=== PATIENT | female | born 1930 | race Caucasian/White ===

== ENCOUNTER 2017-01-24 09:33 | Emergency (ER) | payer MEDICARE, BC ==
[2017-01-24 09:45] VITALS: BP 188/81
[2017-01-24] MEDS ORDERED: Sodium Chloride 0.9% 1,000 ML IV STA (09:57)
[2017-01-24] MEDS ORDERED: Sodium Chloride 0.9% 10 ML Syringe FLUSH PRN (09:57)
--- NOTE | 2017-01-24 10:01 | EDM.PDOC ---
ED HPI GI/ABDOMINAL - General Chief Complaint: Gastrointestinal Problem Stated Complaint: STOMACH CRAMPING Time Seen by Provider: 01/24/17 09:51 Source: Reports: Patient, Family, RN notes reviewed History Limitations: Reports: No limitations - History of Present Illness INITIAL COMMENTS - FREE TEXT/NARRATIVE: 86-year-old female presents to emergency department today with complaint of diarrhea, she states she's had diarrhea for the last 3 days mostly watery no formed stool at times pink tinge she estimates she has between 15 and 20 loose stools per day denies any fever nausea or vomiting does complain of reduced inability to eat secondary to cramping - Related Data Allergies/ADRs: Allergies Allergy/AdvReac Type Severity Reaction Status Date / Time Latex, Natural Rubber Allergy Redness Verified 04/13/15 14:26 Home Meds: Home Meds Gemfibrozil [Lopid] 600 mg PO BID 04/13/15 [History] Isosorbide Mononitrate [Imdur] 30 mg PO DAILY 04/13/15 [History] Lisinopril [Prinivil] 40 mg PO DAILY 04/13/15 [History] Pioglitazone HCl [Pioglitazone HCl] 15 mg PO DAILY 04/13/15 [History] amLODIPine [Norvasc] 10 mg PO DAILY 04/13/15 [History] atorvaSTATin Calcium [Atorvastatin Calcium] 80 mg PO DAILY 04/13/15 [History] atorvaSTATin [Lipitor] 80 mg PO BEDTIME 04/13/15 [History] metFORMIN HCl [Metformin HCl] 850 mg PO TID 04/13/15 [History] Past Medical History HEENT History: Reports: Impaired vision, Macular degeneration Cardiovascular History: Reports: CAD, High cholesterol, Hypertension, [place], 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: Musculoskeletal History: Reports: Osteoarthritis Other Musculoskeletal History: Rknee bone on bone Endocrine/Metabolic History: Reports: Diabetes, type II - Past Surgical History Female Surgical History: Reports: Hysterectomy Social & Family History - Tobacco Use Smoking Status *Q: Never Smoker - Caffeine Use Caffeine Use: Reports: Coffee - Recreational Drug Use Recreational Drug Use: No ED ROS GENERAL - Review of Systems Review Of Systems: See Below Constitutional: Denies: fever HEENT: Reports: No symptoms Respiratory: Reports: no symptoms Cardiovascular: Reports: No symptoms GI/Abdominal: Reports: Abdominal pain, Diarrhea. Denies: Nausea, Vomiting : Reports: no symptoms Musculoskeletal: Reports: no symptoms ED EXAM, GI/ABD - Physical Exam Exam: See Below Exam Limited By: No limitations General Appearance: alert, WD/WN, no apparent distress Respiratory/Chest: no respiratory distress, lungs clear, normal breath sounds, no accessory muscle use Cardiovascular: regular rate, rhythm, no murmur GI/Abdominal: soft, non tender, no distention, no abnormal bruit Course - Vital Signs Last Recorded V/S: Last Vital Signs Temp 93.2 F L 01/24/17 09:43 Pulse 82 01/24/17 09:43 Resp 16 01/24/17 09:43 BP 188/81 H 01/24/17 09:43 Pulse Ox 97 01/24/17 09:43 - Orders/Labs/Meds Orders: Active Orders 24 hr Category Date Time Status Peripheral IV Care [RC] . DIRECTED Care 01/24/17 09:58 Active OVA AND PARASITES [MREF] Stat Lab 01/24/17 14:49 Received Sodium Chloride 0.9% [Saline Flush] Med 01/24/17 09:57 Active 10 ml FLUSH ASDIRECTED PRN Peripheral IV Insertion Adult [OM.PC] Urgent Oth 01/24/17 09:57 Ordered Medication Orders Sodium Chloride (Saline Flush) 10 ml FLUSH ASDIRECTED PRN PRN Reason: Keep Vein Open Last Admin: 01/24/17 10:12 Dose: 10 ml Labs: Laboratory Tests 01/24/17 01/24/17 01/24/17 Range/Units 10:09 10:09 12:17 WBC 9.8 (4.5-11.0) K/uL RBC 4.72 (3.30-5.50) M/uL Hgb 13.2 (12.0-15.0) g/dL Hct 40.0 (36.0-48.0) % MCV 85 (80-98) fL MCH 28 (27-31) pg MCHC 33 (32-36) % Plt Count 300 (150-400) K/uL Neut % (Auto) 80 H (36-66) % Lymph % (Auto) 8 L (24-44) % [place] % (Auto) 11 H (2-6) % Eos % (Auto) 1 L (2-4) % Baso % (Auto) 0 (0-1) % Sodium 139 L (140-148) mmol/L Potassium 3.7 (3.6-5.2) mmol/L Chloride 104 (100-108) mmol/L Carbon Dioxide 21 (21-32) mmol/L Anion Gap 17.7 H (5.0-14.0) mmol/L BUN 24 H (7-18) mg/dL Creatinine 1.3 H (0.6-1.0) mg/dL Est Cr Clr Drug Dosing 21.90 mL/min Estimated GFR (MDRD) 39 L (>60) Glucose 151 H (74-106) mg/dL Calcium 8.8 (8.5-10.1) mg/dL Urine Color Yellow Urine Appearance Clear Urine pH 5.0 (4.5-8.0) Ur Specific [place] 1.015 (1.008-1.030) Urine Protein Negative (NEGATIVE) mg/dL Urine Glucose (UA) Normal (NEGATIVE) mg/dL Urine Ketones Negative (NEGATIVE) mg/dL Urine Occult Blood Negative (NEGATIVE) Urine Nitrite Negative (NEGATIVE) Urine Bilirubin Negative (NEGATIVE) Urine Urobilinogen Normal (NORMAL) mg/dL Ur Leukocyte Esterase Negative (NEGATIVE) Urine RBC Not seen (0-5) Urine WBC Not seen (0-5) Ur Epithelial Cells Few Amorphous Sediment Few Urine Bacteria Few Urine Mucus Not seen Meds: Medications Generic Name Dose Route Start Last Admin Trade Name Freq PRN Reason Stop Dose Admin Sodium Chloride 10 ml 01/24/17 09:57 01/24/17 10:12 Saline Flush FLUSH 10 ml ASDIRECTED PRN Administration Keep Vein Open Discontinued Medications Generic Name Dose Route Start Last Admin Trade Name Freq PRN Reason Stop Dose Admin Sodium Chloride 1,000 mls @ 500 mls/hr 01/24/17 09:57 01/24/17 10:12 Normal Saline IV 01/24/17 11:56 500 mls/hr .BOLUS STA Administration Departure - Departure Time of Disposition: 15:23 Disposition: Home, Self-Care 01 Condition: good Clinical Impression: Diarrhea Qualifiers: Diarrhea type: infectious Qualified Code(s): A09 - Infectious gastroenteritis and colitis, unspecified Forms: ED Department Discharge Additional Instructions: use Imodium as needed to control diarrhea symptoms, Please followup with your primary care provider in 3-5 days if not better, please call return to the emergency department with worsening of symptoms. - My Orders Last 24 Hours: My Active Orders 01/24/17 09:57 Sodium Chloride 0.9% [Saline Flush] 10 ml FLUSH ASDIRECTED PRN Peripheral IV Insertion Adult [OM.PC] Urgent 01/24/17 09:58 Peripheral IV Care [RC] . DIRECTED 01/24/17 14:49 OVA AND PARASITES [MREF] Stat - Assessment/Plan Last 24 Hours: My Active Orders 01/24/17 09:57 Sodium Chloride 0.9% [Saline Flush] 10 ml FLUSH ASDIRECTED PRN Peripheral IV Insertion Adult [OM.PC] Urgent 01/24/17 09:58 Peripheral IV Care [RC] . DIRECTED 01/24/17 14:49 OVA AND PARASITES [MREF] Stat Plan: Assessment Acuity = acute Site and laterality = diarrhea Etiology = unclear etiology Manifestations = none Location of injury = home Lab values = CBC unremarkable sodium low at 139 consist of hyponatremia, creatinine elevated at 1.3 consistent with acute renal failure stage GIV stool culture pending Clostridium difficile is negative moderate amount of WBCs in stool Plan prescription written for Imodium AD, followup with primary care 3-5 days if no improvement will contact with culture results Patient was in agreement with the plan all questions were answered, they were instructed to return to the emergency department or call for worsening symptoms. This note was dictated using [employer] voice recognition software please call with any questions.
== END 2017-01-24 15:48 | disposition home or self-care (01) ==
LOC: JP.ED 09:33
DX: A09 Infectious gastroenteritis and colitis, unspecified (principal); H54.7 Unspecified visual loss; E11.9 Type 2 diabetes mellitus without complications; E78.00 Pure hypercholesterolemia, unspecified; I11.9 Hypertensive heart disease without heart failure; Z91.040 Latex allergy status; Z79.899 Other long term (current) drug therapy
CPT/HCPCS: 36415; 80048; 81001; 85025; 87046; 87177; 87209; 87493; 87899; 89055; 96360; 96361; 99284; J7040; J7050; 99283

== ENCOUNTER 2017-02-13 09:19 | Emergency (ER) | payer MEDICARE, BC ==
[2017-02-13] MEDS ORDERED: Furosemide 40 MG/4 ML VIAL IVPUSH ONE (13:29)
[2017-02-13 13:52] VITALS: BP 150/73
--- NOTE | 2017-02-13 14:49 | EDM.PDOC ---
[id number] ANXIETY/PANIC ATTACKS Time Seen by Provider: 02/13/17 10:00 Source: Reports: Patient, Family History Limitations: Reports: No limitations - History of Present Illness INITIAL COMMENTS - FREE TEXT/NARRATIVE: pt is quite stressed and has been feeling more sob and she has felt more tired than usual. She does feel anxious at nite with her breathing. She has been more tired. Timing/Duration: Reports: Day(s):, Other (pt is not sleeping at nite well. ) Associated symptoms: Reports: shortness of breath, malaise - Related Data Allergies/ADRs: Allergies Allergy/AdvReac Type Severity Reaction Status Date / Time Latex, Natural Rubber Allergy Redness Verified 02/13/17 10:12 Home Meds: Home Meds Gemfibrozil [Lopid] 600 mg PO BID 04/13/15 [History] Isosorbide Mononitrate [Imdur] 30 mg PO DAILY 04/13/15 [History] Lisinopril [Prinivil] 40 mg PO DAILY 04/13/15 [History] Pioglitazone HCl [Pioglitazone HCl] 15 mg PO DAILY 04/13/15 [History] amLODIPine [Norvasc] 10 mg PO DAILY 04/13/15 [History] atorvaSTATin Calcium [Atorvastatin Calcium] 80 mg PO DAILY 04/13/15 [History] atorvaSTATin [Lipitor] 80 mg PO BEDTIME 04/13/15 [History] metFORMIN HCl [Metformin HCl] 850 mg PO TID 04/13/15 [History] Aspirin [Aspirin EC] 325 mg PO DAILY 02/13/17 [History] Levothyroxine Sodium [Levo-T] 25 mcg PO DAILY 02/13/17 [History] Metoprolol Tartrate [Lopressor] 25 mg PO Q12HR 02/13/17 [History] Oxybutynin Chloride 2.5 mg PO BID 02/13/17 [History] Oxybutynin Chloride [Ditropan Xl] 2.5 mg PO BEDTIME 02/13/17 [History] Pioglitazone [Actos] 15 mg PO DAILY 02/13/17 [History] Ranitidine [Zantac] 150 mg PO BID 02/13/17 [History] Past Medical History HEENT History: Reports: Impaired vision, Macular degeneration Cardiovascular History: Reports: CAD, High cholesterol, Hypertension, [place], 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: Musculoskeletal History: Reports: Osteoarthritis Other Musculoskeletal History: Rknee bone on bone Endocrine/Metabolic History: Reports: Diabetes, type II - Past Surgical History Female Surgical History: Reports: Hysterectomy Social & Family History - Tobacco Use Smoking Status *Q: Never Smoker Second Hand Smoke Exposure: No - Caffeine Use Caffeine Use: Reports: Coffee - Recreational Drug Use Recreational Drug Use: No ED ROS GENERAL - Review of Systems Review Of Systems: See Below Constitutional: Reports: no symptoms HEENT: Reports: No symptoms Respiratory: Reports: Shortness of Breath, Cough Cardiovascular: Reports: No symptoms Endocrine: Reports: no symptoms GI/Abdominal: Reports: No symptoms : Reports: no symptoms ED EXAM, NEURO - Physical Exam Exam: See Below Text/Narrative:: pt arrived feeling anxious and more tired than usual. Exam Limited By: No limitations General Appearance: alert, mild distress Ears: normal TMs Nose: normal inspection Throat/Mouth: Normal inspection Head Exam: atraumatic Neck: normal inspection Respiratory/Chest: decreased breath sounds, crackles Cardiovascular: regular rate, rhythm GI/Abdominal: soft, non tender (Female) Exam: Deferred Rectal (Female) Exam: Deferred Neurological: alert, oriented x 3 Back Exam: normal inspection Extremities: normal inspection Course - Vital Signs Last Recorded V/S: Last Vital Signs Temp 35.7 C 02/13/17 09:48 Pulse 61 02/13/17 13:40 Resp 20 02/13/17 13:40 BP 150/73 H 02/13/17 13:40 Pulse Ox 98 02/13/17 13:40 - Orders/Labs/Meds Labs: Laboratory Tests 02/13/17 02/13/17 02/13/17 Range/Units 10:54 10:54 11:57 WBC 8.6 (4.5-11.0) K/uL RBC 4.12 (3.30-5.50) M/uL Hgb 11.3 L (12.0-15.0) g/dL Hct 35.3 L (36.0-48.0) % MCV 86 (80-98) fL MCH 27 (27-31) pg MCHC 32 (32-36) % Plt Count 290 (150-400) K/uL Neut % (Auto) 70 H (36-66) % Lymph % (Auto) 15 L (24-44) % [place] % (Auto) 12 H (2-6) % Eos % (Auto) 3 (2-4) % Baso % (Auto) 0 (0-1) % Sodium 144 (140-148) mmol/L Potassium 4.6 (3.6-5.2) mmol/L Chloride 107 (100-108) mmol/L Carbon Dioxide 25 (21-32) mmol/L Anion Gap 11.7 (5.0-14.0) mmol/L BUN 32 H (7-18) mg/dL Creatinine 1.2 H (0.6-1.0) mg/dL Est Cr Clr Drug Dosing 23.72 mL/min Estimated GFR (MDRD) 42 L (>60) Glucose 103 (74-106) mg/dL Calcium 8.9 (8.5-10.1) mg/dL Iron (50-170) ug/dL TIBC (250-450) ug/dl % Saturation (20-55) % [id number] Pept (5-450) pg/mL Urine Color Yellow Urine Appearance Cloudy Urine pH 5.0 (4.5-8.0) Ur Specific [place] 1.020 (1.008-1.030) Urine Protein 30 H (NEGATIVE) mg/dL Urine Glucose (UA) Normal (NEGATIVE) mg/dL Urine Ketones Negative (NEGATIVE) mg/dL Urine Occult Blood Negative (NEGATIVE) Urine Nitrite Negative (NEGATIVE) Urine Bilirubin Negative (NEGATIVE) Urine Urobilinogen Normal (NORMAL) mg/dL Ur Leukocyte Esterase Small (NEGATIVE) Urine RBC 0-5 (0-5) Urine WBC 0-5 (0-5) Ur Epithelial Cells Rare Amorphous Sediment Not seen Urine Bacteria Many Urine Mucus Not seen 02/13/17 02/13/17 Range/Units 12:43 14:54 WBC (4.5-11.0) K/uL RBC (3.30-5.50) M/uL Hgb (12.0-15.0) g/dL Hct (36.0-48.0) % MCV (80-98) fL MCH (27-31) pg MCHC (32-36) % Plt Count (150-400) K/uL Neut % (Auto) (36-66) % Lymph % (Auto) (24-44) % [place] % (Auto) (2-6) % Eos % (Auto) (2-4) % Baso % (Auto) (0-1) % Sodium (140-148) mmol/L Potassium (3.6-5.2) mmol/L Chloride (100-108) mmol/L Carbon Dioxide (21-32) mmol/L Anion Gap (5.0-14.0) mmol/L BUN (7-18) mg/dL Creatinine (0.6-1.0) mg/dL Est Cr Clr Drug Dosing mL/min Estimated GFR (MDRD) (>60) Glucose (74-106) mg/dL Calcium (8.5-10.1) mg/dL Iron 48 L (50-170) ug/dL TIBC 361 (250-450) ug/dl % Saturation 13 L (20-55) % Jlg-D-Nlasmkrenmp Pept [id number] H (5-450) pg/mL Urine Color Urine Appearance Urine pH (4.5-8.0) Ur Specific [place] (1.008-1.030) Urine Protein (NEGATIVE) mg/dL Urine Glucose (UA) (NEGATIVE) mg/dL Urine Ketones (NEGATIVE) mg/dL Urine Occult Blood (NEGATIVE) Urine Nitrite (NEGATIVE) Urine Bilirubin (NEGATIVE) Urine Urobilinogen (NORMAL) mg/dL Ur Leukocyte Esterase (NEGATIVE) Urine RBC (0-5) Urine WBC (0-5) Ur Epithelial Cells Amorphous Sediment Urine Bacteria Urine Mucus Meds: Medications Discontinued Medications Generic Name Dose Route Start Last Admin Trade Name Freq PRN Reason Stop Dose Admin Furosemide 60 mg 02/13/17 13:29 02/13/17 13:39 Lasix IVPUSH 02/13/17 13:30 60 mg ONETIME ONE Administration - Re-Assessments/Exams Free Text/Narrative Re-Assessment/Exam: 02/13/17 15:05 chest xray reveled some evidence of chf. Her bnp was 15,000, Her hg was on the low side at 11. 4 She was given lasix 60 mg and she has gone about 1000 cc. 02/13/17 15:15 02/13/17 15:15 Pt was checked for her fe level and is low. Sh is only 13 % saturated. Departure - Departure Time of Disposition: 15:16 Disposition: Home, Self-Care 01 Condition: fair Clinical Impression: Fluid overload, Fe deficiency anemia, Anxiety Instructions: Edema Referrals: Breanne Barraza PA [Primary Care Provider] - Forms: ED Department Discharge Care Plan Goals: low salt diet, weigh daily, appt with Laury Barraza on tue or tue. Lasix 20mg daily, kcl 10mq daily, multivit high in fe. , ativan .5 at hs for the next week. Pt may need an echo and further workup.
--- NOTE | 2017-02-14 09:21 | CR ---
Chest 2V HISTORY: sob COMPARISON: 11/13/2012 FINDINGS: Lungs appear clear and normally aerated. Heart size appears borderline enlarged and increased compar ed with the prior exam. No vascular redistribution or pleural fluid can be seen. There is no interst itial edema. Mild degenerative changes are noted along the thoracic spine. IMPRESSION: Borderline cardiomegaly without evidence for decompensation. No other acute chest abnormality is cassie ntified.
== END 2017-02-13 15:47 | disposition home or self-care (01) ==
LOC: JP.ED 09:19
DX: E87.70 Fluid overload, unspecified (principal); D50.9 Iron deficiency anemia, unspecified; F41.9 Anxiety disorder, unspecified; I25.2 Old myocardial infarction; I25.10 Atherosclerotic heart disease of native coronary artery without angina pectoris; I10 Essential (primary) hypertension; E78.00 Pure hypercholesterolemia, unspecified; E11.9 Type 2 diabetes mellitus without complications; Z90.710 Acquired absence of both cervix and uterus; Z79.82 Long term (current) use of aspirin; Z79.899 Other long term (current) drug therapy; Z91.040 Latex allergy status
CPT/HCPCS: 36415; 71020; 80048; 81001; 83550; 83880; 85025; 96374; 99285; J1940; 99284

== ENCOUNTER 2018-11-21 08:24 | Emergency (ER) | payer MEDICARE, BC ==
--- NOTE | 2018-11-21 09:23 | EDM.PDOC ---
ED HPI GENERAL MEDICAL PROBLEM - General Chief Complaint: Respiratory Problem Stated Complaint: SOB Time Seen by Provider: 11/21/18 09:01 Source of Information: Reports: Patient, RN Notes Reviewed History Limitations: Reports: No Limitations - History of Present Illness INITIAL COMMENTS - FREE TEXT/NARRATIVE: 88-year-old female presents emergency department day complaint of shortness of breath, she states she's been short of breath for the last 3 weeks it is progressively gotten worse she was evaluated in the clinic on 01 November did a trial of doxycycline as well as albuterol states she feels it was a bit better on the antibiotics however it is now gotten worse since she stopped she did not use the albuterol that was prescribed. She denies any sputum production weight gain fevers she is nauseated no difficulty with bowel movements or urination - Related Data Allergies Allergy/AdvReac Type Severity Reaction Status Date / Time Latex, Natural Rubber Allergy Redness Verified 11/21/18 08:47 Home Meds: Home Meds Isosorbide Mononitrate [Imdur] 30 mg PO DAILY 04/13/15 [History] Lisinopril [Prinivil] 40 mg PO DAILY 04/13/15 [History] Levothyroxine Sodium [Levo-T] 25 mcg PO DAILY 02/13/17 [History] Metoprolol Tartrate [Lopressor] 50 mg PO Q12HR 02/13/17 [History] Oxybutynin Chloride 5 mg PO BID 02/13/17 [History] Pioglitazone [Actos] 15 mg PO DAILY 02/13/17 [History] Ranitidine [Zantac] 150 mg PO BID 02/13/17 [History] Furosemide 20 mg PO DAILY 02/20/18 [History] Iron,Carbonyl/Vit C/Vit B12/Fa [Iron 100 Plus Tablet] 324 mg PO DAILY 02/20/18 [ History] Acetaminophen [Non-Aspirin Pain Relief] 650 mg PO Q6HR PRN 06/09/18 [History] Vit C/[place] Ac/Lut/Copper/ZnOx [Preservision Softgel] 1 each PO DAILY 06/09/18 [ History] Furosemide [Lasix] 40 mg PO DAILY #30 tablet 11/21/18 [Rx] Past Medical History HEENT History: Reports: Impaired Vision, Macular Degeneration Cardiovascular History: Reports: Afib, CAD, High Cholesterol, Hypertension, [place], SOB on Exertion Gastrointestinal History: Reports: GERD 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 Denies: Wheezing, Cough, Sputum Cardiovascular: Reports: Dyspnea on Exertion GI/Abdominal: Reports: Nausea : Reports: No Symptoms Musculoskeletal: Reports: No Symptoms Skin: Reports: No Symptoms Neurological: Reports: No Symptoms ED EXAM, GENERAL - Physical Exam Exam: See Below Free Text/Narrative:: General: Female, not in any distress, alert and oriented x3 HEENT: head is atraumatic normocephalic, eyes pupils equal round reactive to light, sclera clear no conjunctivitis appreciated. Ears tympanic membranes clear and dan landmarks and light reflex are present bilaterally canals are clear. Nose no septal deviation, nares are clear, no blood present. Mouth mucosa is moist and pink no erythema or exudate noted in soft palate, tongue is midline uvula is midline, dentition is intact. Neck: Supple no thyromegaly no tracheal deviation. Nodes: Cervical nodes subclavicular nodes nontender no palpable lymphadenopathy noted. Lungs: crackles in the base bilateraly. CV: Irregularly irregular rate and rhythm S1 and S2 appreciated no murmurs rubs or gallops noted. Abdomen: Soft, nontender, no palpable masses or organomegaly appreciated, no distention no guarding bowel sounds are present, . Neuro: GCS of 15 Skin: Warm and dry, intact Extremities: No lower extremity edema appreciated, Course - Vital Signs Last Recorded V/S: Last Vital Signs Temp 93.4 F L 11/21/18 08:45 Pulse 91 11/21/18 08:45 Resp 24 H 11/21/18 08:45 BP 150/84 H 11/21/18 10:22 Pulse Ox 98 11/21/18 08:45 - Orders/Labs/Meds Orders: Active Orders 24 hr Category Date Time Status Cardiac Monitoring [RC] .As Directed Care 11/21/18 09:17 Active EKG Documentation Completion [RC] ASDIRECTED Care 11/21/18 09:17 Active Peripheral IV Care [RC] . DIRECTED Care 11/21/18 09:59 Active Sodium Chloride 0.9% [Saline Flush] Med 11/21/18 09:58 Active 10 ml FLUSH ASDIRECTED PRN Peripheral IV Insertion Adult [OM.PC] Urgent Oth 11/21/18 09:58 Ordered EKG 12 Lead [EK] Stat Ther 11/21/18 09:17 Ordered Medication Orders Sodium Chloride (Saline Flush) 10 ml FLUSH ASDIRECTED PRN PRN Reason: Keep Vein Open Last Admin: 11/21/18 10:24 Dose: 10 ml Labs: Laboratory Tests 11/21/18 11/21/18 11/21/18 Range/Units 09:24 09:24 09:24 WBC 6.4 (4.5-11.0) K/uL RBC 4.22 (3.30-5.50) M/uL Hgb 12.3 (12.0-15.0) g/dL Hct 37.7 (36.0-48.0) % MCV 89 (80-98) fL MCH 29 (27-31) pg MCHC 33 (32-36) % Plt Count 218 (150-400) K/uL Neut % (Auto) 74 H (36-66) % Lymph % (Auto) 13 L (24-44) % [place] % (Auto) 11 H (2-6) % Eos % (Auto) 2 (2-4) % Baso % (Auto) 0 (0-1) % Sodium 139 L (140-148) mmol/L Potassium 3.4 L (3.6-5.2) mmol/L Chloride 102 (100-108) mmol/L Carbon Dioxide 27 (21-32) mmol/L Anion Gap 13.4 (5.0-14.0) mmol/L BUN 26 H (7-18) mg/dL Creatinine 1.3 H (0.6-1.0) mg/dL Est Cr Clr Drug Dosing 24.27 mL/min Estimated GFR (MDRD) 39 L (>60) Glucose 137 H (74-106) mg/dL Lactic Acid 1.5 (0.4-2.0) mmol/L Calcium 8.8 (8.5-10.1) mg/dL Total Bilirubin 0.8 D (0.2-1.0) mg/dL AST 33 (15-37) U/L ALT 42 D (12-78) U/L Alkaline Phosphatase 90 (46-116) U/L Troponin I 0.128 H* (0.000-0.056) ng/mL NT-Pro-B Natriuret Pep 56978 H (5-450) pg/mL Total Protein 6.8 (6.4-8.2) g/dL Albumin 3.2 L (3.4-5.0) g/dL Globulin 3.6 H (2.3-3.5) g/dL Albumin/Globulin Ratio 0.9 L (1.2-2.2) Meds: Medications Generic Name Dose Route Start Last Admin Trade Name Freq PRN Reason Stop Dose Admin Sodium Chloride 10 ml 11/21/18 09:58 11/21/18 10:24 Saline Flush FLUSH 10 ml ASDIRECTED PRN Administration Keep Vein Open Discontinued Medications Generic Name Dose Route Start Last Admin Trade Name Freq PRN Reason Stop Dose Admin Furosemide 40 mg 11/21/18 09:58 11/21/18 10:24 Lasix IVPUSH 11/21/18 09:59 40 mg ONETIME ONE Administration Nitroglycerin 0.4 mg 11/21/18 09:58 11/21/18 10:22 Nitrostat SL 11/21/18 09:59 0.4 mg ONETIME ONE Administration Departure - Departure Time of Disposition: 11:07 Disposition: Home, Self-Care 01 Condition: Fair Clinical Impression: Acute exacerbation of congestive heart failure Qualifiers: Heart failure type: unspecified Qualified Code(s): I50.9 - Heart failure, unspecified - Discharge Information Referrals: Breanne Barraza PA [Primary Care Provider] - Forms: ED Department Discharge Additional Instructions: Take Lasix 40 mg twice a day you have received 1 dose today take a second dose this afternoon. take the Lasix 40 mg twice a day for the next 3 days, then reduce your dose to 40 mg once a day, follow-up with your primary care provider by the end of this week for reevaluation and recheck of lab work, additional Lasix medication has been faxed to [email or web address] - My Orders Last 24 Hours: My Active Orders 11/21/18 09:17 Cardiac Monitoring [RC] .As Directed EKG Documentation Completion [RC] ASDIRECTED EKG 12 Lead [EK] Stat 11/21/18 09:58 Sodium Chloride 0.9% [Saline Flush] 10 ml FLUSH ASDIRECTED PRN Peripheral IV Insertion Adult [OM.PC] Urgent 11/21/18 09:59 Peripheral IV Care [RC] . DIRECTED - Assessment/Plan Last 24 Hours: My Active Orders 11/21/18 09:17 Cardiac Monitoring [RC] .As Directed EKG Documentation Completion [RC] ASDIRECTED EKG 12 Lead [EK] Stat 11/21/18 09:58 Sodium Chloride 0.9% [Saline Flush] 10 ml FLUSH ASDIRECTED PRN Peripheral IV Insertion Adult [OM.PC] Urgent 11/21/18 09:59 Peripheral IV Care [RC] . DIRECTED Plan: Assessment Acuity = acute Site and laterality = exacerbation of congestive heart failure Etiology = unclear etiology Manifestations = dyspnea and dyspnea on exertion Location of injury = Home Lab values = CBC unremarkable, potassium low at 3.4 consistent hypokalemia creatinine elevated 1.3 consistent chronic renal failure stage G IIIB troponin elevated 0.128 consistent with a demand ischemia BNP markedly elevated 16,664 consistent with fluid overload type pattern chest x-ray shows cardiomegaly and congestive heart failure type pattern EKG demonstrates a sinus rhythm there is no ST elevations or depressions Plan She was provided nitroglycerin 1 with 40 mg Lasix IV which did provide some relief I talked to her about admission secondary to her age and extensiveness of the congestive heart failure she declined would like to try outpatient treatment first. Therefore will increase her Lasix to 40 mg twice a day for the next 3 days and then 40 mg once a day with good follow-up with her primary in the next 2-3 days for reevaluation and recheck electrolytes This note was dictated using [email or web address] voice recognition software please call with any questions on syntax or grammar.
[2018-11-21] MEDS ORDERED: Sodium Chloride 0.9% 10 ML Syringe FLUSH PRN (09:58)
[2018-11-21] MEDS ORDERED: Furosemide 40 MG/4 ML VIAL IVPUSH ONE (09:58)
[2018-11-21] MEDS ORDERED: Nitroglycerin 0.4 MG Tab.SL SL ONE (09:58)
--- NOTE | 2018-11-21 10:09 | CR ---
Mild-moderate cardiomegaly. No pleural effusion. No definitive focal consolidation. Interstitial thickening is likely chronic but correlate for interstitial edema. Blunting of the costophrenic angles could indicate pleural thickening versus tiny pleural effusions. Kyphosis of the spine.
[2018-11-21 10:23] VITALS: BP 150/84
== END 2018-11-21 12:01 | disposition home or self-care (01) ==
LOC: JP.ED 08:24
DX: I11.0 Hypertensive heart disease with heart failure (principal); I50.9 Heart failure, unspecified; E11.9 Type 2 diabetes mellitus without complications; E78.00 Pure hypercholesterolemia, unspecified; I25.2 Old myocardial infarction; Z91.040 Latex allergy status; Z79.899 Other long term (current) drug therapy
CPT/HCPCS: 36415; 71046; 80053; 83605; 83880; 84484; 85025; 93005; 96374; 99285; J1940; 99284; A9270-GY

== ENCOUNTER 2019-05-13 22:16 | Emergency (ER) | payer MEDICARE, BC ==
[2019-05-13 22:44] VITALS: BP 151/96
[2019-05-13] MEDS ORDERED: Alum Hydrox/Mag Hydrox/Simeth 15 ML, Lidocaine 2% 15 ML PO ONE ×2 (22:53)
--- NOTE | 2019-05-13 22:54 | EDM.PDOC ---
ED HPI GENERAL MEDICAL PROBLEM - General Chief Complaint: Abdominal Pain Stated Complaint: COUGH,SOB,ABDOMINAL PAIN Time Seen by Provider: 05/13/19 22:46 Source of Information: Reports: Patient, Family, Old Records, RN Notes Reviewed History Limitations: Reports: No Limitations - History of Present Illness INITIAL COMMENTS - FREE TEXT/NARRATIVE: 88-year-old female presents to the emergency department today complaint of abdominal pain. She had an extensive evaluation by her primary care for the abdominal pain 2 days ago which included blood work and CT scan of the abdomen, results of blood work are all unremarkable CT scan of the abdomen does show moderate sized hiatal hernia scant gallstones and diverticulosis no active disease. Her complaining emergency department is that she is still having abdominal pain primary care did switch her from ranitidine to omeprazole she has not felt any relief Abdominal Pain Score (Numeric/FACES): 3 - Related Data Allergies Allergy/AdvReac Type Severity Reaction Status Date / Time Latex, Natural Rubber Allergy Redness Verified 03/16/19 09:21 Home Meds: Home Meds Isosorbide Mononitrate [Imdur] 30 mg PO DAILY 04/13/15 [History] Lisinopril [Prinivil] 40 mg PO DAILY 04/13/15 [History] Levothyroxine Sodium [Levo-T] 25 mcg PO DAILY 02/13/17 [History] Metoprolol Tartrate [Lopressor] 50 mg PO Q12HR 02/13/17 [History] Furosemide 20 mg PO DAILY 02/20/18 [History] Iron,Carbonyl/Vit C/Vit B12/Fa [Iron 100 Plus Tablet] 324 mg PO DAILY 02/20/18 [ History] Acetaminophen [Non-Aspirin Pain Relief] 650 mg PO Q6HR PRN 06/09/18 [History] Vit C/Elliott Ac/Lut/Copper/ZnOx [Preservision Softgel] 1 each PO DAILY 06/09/18 [ History] Warfarin [Coumadin] 2.5 mg PO DAILY 03/16/19 [History] LORazepam 0.5 mg PO BEDTIME 05/13/19 [History] Omeprazole 20 mg PO DAILY 05/13/19 [History] Past Medical History HEENT History: Reports: Impaired Vision, Macular Degeneration Cardiovascular History: Reports: Afib, CAD, High Cholesterol, Hypertension, [place], SOB on Exertion Gastrointestinal History: Reports: Cholelithiasis, Diverticulosis, GERD, Hiatal Hernia 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: Musculoskeletal History: Reports: Osteoarthritis Other Musculoskeletal History: right knee pain Endocrine/Metabolic History: Reports: Diabetes, Type II - Past Surgical History Female Surgical History: Reports: Hysterectomy Social & Family History - Tobacco Use Smoking Status *Q: Never Smoker - Caffeine Use Caffeine Use: Reports: None - Recreational Drug Use Recreational Drug Use: No ED ROS GENERAL - Review of Systems Review Of Systems: See Below Constitutional: Reports: No Symptoms HEENT: Reports: No Symptoms Respiratory: Reports: Cough Cardiovascular: Reports: No Symptoms GI/Abdominal: Reports: Abdominal Pain : Reports: No Symptoms ED EXAM, GI/ABD - Physical Exam Exam: See Below Exam Limited By: No Limitations General Appearance: Alert, WD/WN, No Apparent Distress Respiratory/Chest: No Respiratory Distress, Lungs Clear, Normal Breath Sounds, No Accessory Muscle Use Cardiovascular: No Murmur, Irregularly Irregular GI/Abdominal Exam: Normal Bowel Sounds, Soft, Non-Tender Course - Vital Signs Last Recorded V/S: Last Vital Signs Temp 97.9 F 05/13/19 22:41 Pulse 79 05/13/19 22:41 Resp 16 05/13/19 22:41 BP 151/96 H 05/13/19 22:41 Pulse Ox 96 05/13/19 22:41 - Orders/Labs/Meds Orders: Active Orders 24 hr Category Date Time Status UA W/MICROSCOPIC [URIN] Urgent Lab 05/13/19 22:51 Ordered Labs: Laboratory Tests 05/13/19 05/13/19 05/13/19 Range/Units 23:02 23:02 23:02 WBC 9.1 (4.5-11.0) K/uL RBC 4.92 (3.30-5.50) M/uL Hgb 14.5 D (12.0-15.0) g/dL Hct 44.1 (36.0-48.0) % MCV 90 (80-98) fL MCH 30 (27-31) pg MCHC 33 (32-36) % Plt Count 214 (150-400) K/uL Neut % (Auto) 82 H (36-66) % Lymph % (Auto) 10 L (24-44) % [place] % (Auto) 7 H (2-6) % Eos % (Auto) 1 L (2-4) % Baso % (Auto) 0 (0-1) % Sodium 137 L (140-148) mmol/L Potassium 4.0 (3.6-5.2) mmol/L Chloride 100 (100-108) mmol/L Carbon Dioxide 24 (21-32) mmol/L Anion Gap 17.0 H (5.0-14.0) mmol/L BUN 39 H (7-18) mg/dL Creatinine 1.4 H (0.6-1.0) mg/dL Est Cr Clr Drug Dosing 19.57 mL/min Estimated GFR (MDRD) 35 L (>60) Glucose 192 H (74-106) mg/dL Lactic Acid 2.4 H (0.4-2.0) mmol/L Calcium 8.7 (8.5-10.1) mg/dL Total Bilirubin 0.7 (0.2-1.0) mg/dL AST 34 (15-37) U/L ALT 72 (12-78) U/L Alkaline Phosphatase 140 H (46-116) U/L Troponin I 0.024 (0.000-0.056) ng/mL NT-Pro-B Natriuret Pep (5-450) pg/mL Total Protein 7.2 (6.4-8.2) g/dL Albumin 3.2 L (3.4-5.0) g/dL Globulin 4.0 H (2.3-3.5) g/dL Albumin/Globulin Ratio 0.8 L (1.2-2.2) Lipase 222 (73-393) U/L 05/13/19 Range/Units 23:53 WBC (4.5-11.0) K/uL RBC (3.30-5.50) M/uL Hgb (12.0-15.0) g/dL Hct (36.0-48.0) % MCV (80-98) fL MCH (27-31) pg MCHC (32-36) % Plt Count (150-400) K/uL Neut % (Auto) (36-66) % Lymph % (Auto) (24-44) % [place] % (Auto) (2-6) % Eos % (Auto) (2-4) % Baso % (Auto) (0-1) % Sodium (140-148) mmol/L Potassium (3.6-5.2) mmol/L Chloride (100-108) mmol/L Carbon Dioxide (21-32) mmol/L Anion Gap (5.0-14.0) mmol/L BUN (7-18) mg/dL Creatinine (0.6-1.0) mg/dL Est Cr Clr Drug Dosing mL/min Estimated GFR (MDRD) (>60) Glucose (74-106) mg/dL Lactic Acid (0.4-2.0) mmol/L Calcium (8.5-10.1) mg/dL Total Bilirubin (0.2-1.0) mg/dL AST (15-37) U/L ALT (12-78) U/L Alkaline Phosphatase (46-116) U/L Troponin I (0.000-0.056) ng/mL NT-Pro-B Natriuret Pep 69954 H (5-450) pg/mL Total Protein (6.4-8.2) g/dL Albumin (3.4-5.0) g/dL Globulin (2.3-3.5) g/dL Albumin/Globulin Ratio (1.2-2.2) Lipase (73-393) U/L Meds: Medications Discontinued Medications Generic Name Dose Route Start Last Admin Trade Name Freq PRN Reason Stop Dose Admin Al Hydroxide/Mg Hydroxide 15 0 ml 05/13/19 22:53 05/13/19 23:20 ml/ Lidocaine HCl 15 ml PO 05/13/19 22:54 15 ml ONETIME ONE Administration Departure - Departure Time of Disposition: 00:52 Disposition: Home, Self-Care 01 Condition: Fair Clinical Impression: Acute exacerbation of congestive heart failure Qualifiers: Heart failure type: unspecified Qualified Code(s): I50.9 - Heart failure, unspecified - Discharge Information Referrals: Breanne Barraza PA [Primary Care Provider] - Forms: ED Department Discharge Additional Instructions: Increase her Lasix to 40 mg 2 times a day and then follow-up with your primary care in the next 3-5 days for reevaluation - My Orders Last 24 Hours: My Active Orders 05/13/19 22:51 UA W/MICROSCOPIC [URIN] Urgent - Assessment/Plan Last 24 Hours: My Active Orders 05/13/19 22:51 UA W/MICROSCOPIC [URIN] Urgent Plan: Assessment Acuity = acute Site and laterality = exacerbation congestive heart failure Etiology = fluid overload Manifestations = cough, pushing on the handle hernias well causing epigastric pain Location of injury = Home Lab values = CBC unremarkable creatinine elevated 1.4 consistent chronic renal failure stage G IIIB BNP markedly elevated at 32,506 Plan She recently had her Lasix cut back to only 20 mg once a day and then increases to 40 mg twice a day follow-up with her primary care in the next 3-5 days for reevaluation This note was dictated using [employer] voice recognition software please call with any questions on syntax or grammar.
--- NOTE | 2019-05-13 23:36 | CRLCR ---
INDICATION: Cough TECHNIQUE: Chest radiograph 2 views COMPARISON: CT 05/11/2019 FINDINGS: Mediastinum: The mediastinum is normal in appearance. Severe cardiomegaly is present. Lung: Both lungs are unremarkable in appearance. No sign of pleural effusion seen. No pneumothorax is identified. visualized. There is a chronic appearing mild compression deformity present in the lower thoracic spine, unchanged from prior exam. IMPRESSION: 1. Severe cardiomegaly is present. Dictated by Bert Cerrato MD @ 05/13/2019 11:35:28 PM Dictated by: Bert Cerrato MD @ 05/13/2019 23:35:30 (Electronically Signed)
== END 2019-05-14 01:05 | disposition home or self-care (01) ==
LOC: JP.ED 22:16
DX: I11.0 Hypertensive heart disease with heart failure (principal); I50.9 Heart failure, unspecified; E11.9 Type 2 diabetes mellitus without complications; I25.2 Old myocardial infarction; I25.10 Atherosclerotic heart disease of native coronary artery without angina pectoris; I48.91 Unspecified atrial fibrillation; K21.9 Gastro-esophageal reflux disease without esophagitis; M19.90 Unspecified osteoarthritis, unspecified site; Z91.040 Latex allergy status; Z79.899 Other long term (current) drug therapy; Z79.01 Long term (current) use of anticoagulants; Z90.710 Acquired absence of both cervix and uterus
CPT/HCPCS: 36415; 71046; 80053; 83605; 83690; 83880; 84484; 85025; 99284; A9270

== ENCOUNTER 2019-06-04 09:22 | Day surgery (SDC) | payer MEDICARE, BC ==
[~2019-06-04 09:22] MED LIST: Bupivacaine 0.5% 50 ML MDV ONE; Lidocaine 1% with EPINEPHrine 1:100,000 50 ML MDV ONE
[2019-06-04] MEDS ORDERED: Dextrose 5%-Lactated Ringers 1,000 ML IV SCH (09:45)
[2019-06-04] MEDS ORDERED: ceFAZolin 2 GM in Sodium Chloride 0.9% 50 ML IV ONE (10:30)
[2019-06-04] MEDS ORDERED: fentaNYL 100 MCG/2 ML SDV ONE (11:46)
[2019-06-04] MEDS ORDERED: Propofol 200 MG/20 ML SDV ONE (11:46)
[2019-06-04] MEDS ORDERED: Acetaminophen/HYDROcodone 325-5 MG Tab PO PRN (13:56)
[2019-06-04 14:02] VITALS: BP 160/83; PULSE 74
--- NOTE | 2019-06-05 08:06 | OR ---
DATE OF PROCEDURE: 06/04/2019 PREOPERATIVE DIAGNOSIS: Incarcerated right inguinal hernia. POSTOPERATIVE DIAGNOSIS: Incarcerated direct right inguinal hernia. PROCEDURE: Reduction and repair with an extra-large PerFix mesh plug and patch, incarcerated direct right inguinal hernia. ANESTHESIA: IV anesthesia with monitored anesthesia care. SURGEON: Bobby Bell MD INDICATION: This 88-year-old white female has a large right inguinal hernia. This is not reducible. She has a history in 2011 of repair of a right femoral hernia with a mesh plug and patch. I counseled her for repair of this right inguinal hernia including risks and alternatives, and she gave her informed consent to proceed. DESCRIPTION OF PROCEDURE: After adequate IV anesthesia was obtained, the patient's lower abdomen, groin, and genitalia were prepped and draped in the usual sterile fashion. Time-out was held. Lidocaine 1% with epinephrine in a 50:50 mix with 0.5% Marcaine was infiltrated about the right groin. A right groin incision was made 2 cm superior and medial to the inguinal ligament. This was carried deep to the external oblique using Bovie cautery. It was noted there was bulging hernia up and out through the external ring. The external oblique was opened laterally beyond the internal ring. The direct hernia sac, which we encountered was dissected free on all sides. We could not reduce it. It was opened and was noted to contain the cecum with some small bowel. We excised some of the sac. With this, we were able to reduce the bowel contents back into the abdomen. The sac was dissected free on all sides. It was closed with a running stitch of 3-0 Vicryl and was reduced back into the abdominal cavity. An extra-large PerFix mesh plug manufactured by [employer] was obtained. The plug was passed down through the defect underneath the fascia. It was anchored to the underside of the fascia with horizontal mattress stitches of 3-0 Vicryl. The onlay patch was obtained, cut to appropriate size, and placed over the inguinal floor. It was anchored to the underlying fascia with 2-0 Vicryl suture. The external oblique was then closed with a running stitch of 2-0 Vicryl over the mesh. Interrupted stitches of 2-0 Vicryl placed to approximate the Roderick's fascia. 4-0 Vicryl using a subcuticular stitch was placed to approximate the skin. Dermabond was applied. The patient tolerated the procedure well and was brought to recovery room in good condition. Bobby Bell MD /[id number] MTDD
== END 2019-06-04 14:53 | disposition home or self-care (01) ==
LOC: JP.SDS 09:22
PROVIDERS: ATTEND Surgery
DX: K40.30 Unilateral inguinal hernia, with obstruction, without gangrene, not specified as recurrent (principal); I10 Essential (primary) hypertension; I25.10 Atherosclerotic heart disease of native coronary artery without angina pectoris; I25.2 Old myocardial infarction; I48.91 Unspecified atrial fibrillation; I42.9 Cardiomyopathy, unspecified; E11.9 Type 2 diabetes mellitus without complications; E78.5 Hyperlipidemia, unspecified; Z95.5 Presence of coronary angioplasty implant and graft; Z98.890 Other specified postprocedural states; Z91.040 Latex allergy status
CPT/HCPCS: 49507; A9270; C1781; J0690; J2704; J3010; J3490; J7042; J7050; 88302

== ENCOUNTER 2019-06-15 12:05 | Emergency (ER) | payer MEDICARE, BC ==
[2019-06-15 12:34] VITALS: PULSE 90
--- NOTE | 2019-06-15 12:45 | EDM.PDOC ---
ED HPI GENERAL MEDICAL PROBLEM - General Chief Complaint: Cardiovascular Problem Stated Complaint: CONGESTIVE HEART FAILURE Time Seen by Provider: 06/15/19 12:07 - History of Present Illness INITIAL COMMENTS - FREE TEXT/NARRATIVE: sent over from clinic hx of chf; is more sob today; up 4 lbs now She "ate [place]" this weekend On lasix; hx of ckd She denies cp, pressure, heaviness No nausea or vomiting no cough Here with her . Onset: Gradual Location: Reports: Chest, Lower Extremity, Left, Lower Extremity, Right - Related Data Allergies Allergy/AdvReac Type Severity Reaction Status Date / Time Latex, Natural Rubber Allergy Redness Verified 06/15/19 12:39 Home Meds: Home Meds Isosorbide Mononitrate [Imdur] 30 mg PO DAILY 04/13/15 [History] Lisinopril [Prinivil] 40 mg PO DAILY 04/13/15 [History] Levothyroxine Sodium [Levo-T] 25 mcg PO DAILY 02/13/17 [History] Acetaminophen [Non-Aspirin Pain Relief] 650 mg PO Q6HR PRN 06/09/18 [History] Vit C/Elliott Ac/Lut/Copper/ZnOx [Preservision Softgel] 1 tab PO BID 06/09/18 [ History] Warfarin [Coumadin] 2.5 mg PO SUMOTUTHSA 03/16/19 [History] LORazepam 0.5 mg PO BEDTIME 05/13/19 [History] Omeprazole 20 mg PO DAILY 05/13/19 [History] Ferrous Gluconate 324 mg PO DAILY 06/04/19 [History] Furosemide 40 mg PO DAILY 06/04/19 [History] Metoprolol Succinate [Toprol Xl] 75 mg PO QPM 06/04/19 [History] Metoprolol Succinate [Toprol Xl] 100 mg PO QAM 06/04/19 [History] Warfarin [Coumadin] 3.75 mg PO WEFR 06/04/19 [History] Past Medical History HEENT History: Reports: Impaired Vision, Macular Degeneration Cardiovascular History: Reports: Afib, CAD, High Cholesterol, Hypertension, RI, SOB on Exertion Gastrointestinal History: Reports: Cholelithiasis, Diverticulosis, GERD, Hiatal Hernia Genitourinary History: Reports: UTI, Recurrent, Other (See Below) Other Genitourinary History: Stage III kidney disease 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: Musculoskeletal History: Reports: Osteoarthritis Other Musculoskeletal History: right knee pain Psychiatric History: Reports: Anxiety Endocrine/Metabolic History: Reports: Diabetes, Type II Dermatologic History: Reports: Other (See Below) Other Dermatologic History: rash under abdominal fold at times - Past Surgical History HEENT Surgical History: Reports: Adenoidectomy, Cataract Surgery, Tonsillectomy GI Surgical History: Reports: Colonoscopy, Hernia Repair/Other Female Surgical History: Reports: Hysterectomy Musculoskeletal Surgical History: Reports: Knee Replacement Social & Family History - Tobacco Use Smoking Status *Q: Never Smoker - Caffeine Use Caffeine Use: Reports: Coffee ED ROS GENERAL - Review of Systems Review Of Systems: See Below Constitutional: Reports: Weight Gain Respiratory: Reports: Shortness of Breath Cardiovascular: Reports: No Symptoms GI/Abdominal: Reports: No Symptoms : Reports: No Symptoms Musculoskeletal: Reports: No Symptoms Skin: Reports: No Symptoms Neurological: Reports: No Symptoms Psychiatric: Reports: No Symptoms ED EXAM, GENERAL - Physical Exam Exam: See Below Exam Limited By: No Limitations General Appearance: Alert, WD/WN, No Apparent Distress Throat/Mouth: Normal Lips, Normal Oropharynx, No Airway Compromise Head: Atraumatic, Normocephalic Neck: Normal Inspection, Supple, Non-Tender, Full Range of Motion Respiratory/Chest: No Respiratory Distress, Lungs Clear, Normal Breath Sounds Cardiovascular: Other (regularly irregular) Peripheral Pulses: 4+: Posterior Tibial (L), Posterior Tibial (R), Dorsalis Pedis (L), Dorsalis Pedis (R) GI/Abdominal: Normal Bowel Sounds, Soft Extremities: Pedal Edema (bilaterally) Neurological: Alert, Oriented, CN II-XII Intact Skin Exam: Warm, Dry EKG INTERPRETATION EKG Date: 06/15/19 Time: 12:39 Rhythm: A-Fib Rate (Beats/Min): 86 Course - Vital Signs Last Recorded V/S: Last Vital Signs Temp 96.9 F 06/15/19 12:45 Pulse 90 06/15/19 13:33 Resp 22 H 06/15/19 12:45 BP 152/88 H 06/15/19 13:33 Pulse Ox 90 L 06/15/19 13:33 - Orders/Labs/Meds Orders: Active Orders 24 hr Category Date Time Status EKG Documentation Completion [RC] ASDIRECTED Care 06/15/19 12:16 Active Peripheral IV Care [RC] . DIRECTED Care 06/15/19 12:17 Active Sodium Chloride 0.9% [Saline Flush] Med 06/15/19 12:17 Active 10 ml FLUSH ASDIRECTED PRN Peripheral IV Insertion Adult [OM.PC] Stat Oth 06/15/19 12:17 Ordered EKG 12 Lead [EK] Routine Ther 06/15/19 12:16 Ordered Medication Orders Sodium Chloride (Saline Flush) 10 ml FLUSH ASDIRECTED PRN PRN Reason: Keep Vein Open Last Admin: 06/15/19 14:54 Dose: 10 ml Admin: 06/15/19 13:36 Dose: 10 ml Labs: Laboratory Tests 06/15/19 06/15/19 06/15/19 Range/Units 12:25 12:25 12:25 WBC 8.5 (4.5-11.0) K/uL RBC 4.39 (3.30-5.50) M/uL Hgb 12.7 (12.0-15.0) g/dL Hct 39.5 (36.0-48.0) % MCV 90 (80-98) fL MCH 29 (27-31) pg MCHC 32 (32-36) % Plt Count 258 (150-400) K/uL Neut % (Auto) 79 H (36-66) % Lymph % (Auto) 12 L (24-44) % [place] % (Auto) 8 H (2-6) % Eos % (Auto) 1 L (2-4) % Baso % (Auto) 1 (0-1) % PT 25.8 H (9.5-12.0) sec INR 2.52 H (0.80-1.20) Sodium 139 L (140-148) mmol/L Potassium 3.8 (3.6-5.2) mmol/L Chloride 100 (100-108) mmol/L Carbon Dioxide 29 (21-32) mmol/L Anion Gap 13.8 (5.0-14.0) mmol/L BUN 39 H (7-18) mg/dL Creatinine 1.3 H (0.6-1.0) mg/dL Est Cr Clr Drug Dosing 21.07 mL/min Estimated GFR (MDRD) 39 L (>60) Glucose 194 H (74-106) mg/dL Calcium 8.5 (8.5-10.1) mg/dL Total Bilirubin 0.7 (0.2-1.0) mg/dL AST 43 H (15-37) U/L ALT 56 (12-78) U/L Alkaline Phosphatase 152 H (46-116) U/L Troponin I 0.028 (0.000-0.056) ng/mL NT-Pro-B Natriuret Pep 89149 H (5-450) pg/mL Total Protein 7.2 (6.4-8.2) g/dL Albumin 2.9 L (3.4-5.0) g/dL Globulin 4.3 H (2.3-3.5) g/dL Albumin/Globulin Ratio 0.7 L (1.2-2.2) Meds: Medications Generic Name Dose Route Start Last Admin Trade Name Freq PRN Reason Stop Dose Admin Sodium Chloride 10 ml 06/15/19 12:17 06/15/19 14:54 Saline Flush FLUSH 10 ml ASDIRECTED PRN Administration Keep Vein Open Discontinued Medications Generic Name Dose Route Start Last Admin Trade Name Freq PRN Reason Stop Dose Admin Bacitracin 1 dose 06/15/19 13:25 06/15/19 13:36 Bacitracin Oint 1 Gm TOP 06/15/19 13:26 1 dose ONETIME ONE Administration Furosemide 20 mg 06/15/19 13:15 06/15/19 13:36 Lasix IVPUSH 06/15/19 13:16 20 mg ONETIME ONE Administration Furosemide 20 mg 06/15/19 14:26 06/15/19 14:54 Lasix IVPUSH 06/15/19 14:27 20 mg ONETIME ONE Administration Potassium Chloride 40 meq 06/15/19 14:21 06/15/19 14:54 Klor-Con M20 PO 06/15/19 14:22 40 meq ONETIME ONE Administration - Re-Assessments/Exams Free Text/Narrative Re-Assessment/Exam: 06/15/19 14:12 IV lasix given; she is up going to the bathroom frequently; she doesn't want to stay in the hospital as 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 Will continue to monitor. 06/15/19 17:14 Got patient up and walking the halls; she did well; still has some SOB at time of rest but recovers nicely; is able to rest comfortably. She would like to go home. She verbalizes understanding of plan as outpatient and that should her symptoms worsen, to return to the ER. Departure - Departure Time of Disposition: 17:17 Disposition: Home, Self-Care 01 Condition: Fair Clinical Impression: Acute exacerbation of CHF (congestive heart failure) Qualifiers: Heart failure type: unspecified Qualified Code(s): I50.9 - Heart failure, unspecified Instructions: Shortness of Breath, Adult, [id number], Heart Failure Exacerbation Referrals: Breanne Barraza PA [Primary Care Provider] - Forms: ED Department Discharge Additional Instructions: Take 40 mg of lasix in the morning and 40 mg later afternoon. For Tuesday morning dose; return to your normal dosage/schedule. Please take the potassium supplement for the next 2 days. (Tuesday and Tuesday) Take with food. Stay away from processed foods/canned foods Elevate your legs when you can Weigh yourself daily If you feel that your symptoms are getting worse, return to the ER Call with questions. Appointment time for June 19 Lab at 12:30 Appointment 1pm with Cole Pinto. - Problem List & Annotations (1) Acute exacerbation of congestive heart failure SNOMED Code(s): 699025363, [id number] Code(s): I50.9 - HEART FAILURE, UNSPECIFIED Status: Acute Priority: Medium Current Visit: Yes Qualifiers: Heart failure type: systolic Qualified Code(s): I50.23 - Acute on chronic systolic (congestive) heart failure - Problem List Review Problem List Initiated/Reviewed/Updated: Yes - My Orders Last 24 Hours: My Active Orders 06/15/19 12:16 EKG Documentation Completion [RC] ASDIRECTED EKG 12 Lead [EK] Routine 06/15/19 12:17 Peripheral IV Care [RC] . DIRECTED Sodium Chloride 0.9% [Saline Flush] 10 ml FLUSH ASDIRECTED PRN Peripheral IV Insertion Adult [OM.PC] Stat - Assessment/Plan Last 24 Hours: My Active Orders 06/15/19 12:16 EKG Documentation Completion [RC] ASDIRECTED EKG 12 Lead [EK] Routine 06/15/19 12:17 Peripheral IV Care [RC] . DIRECTED Sodium Chloride 0.9% [Saline Flush] 10 ml FLUSH ASDIRECTED PRN Peripheral IV Insertion Adult [OM.PC] Stat
[2019-06-15] MEDS ORDERED: Furosemide 20 MG/2 ML VIAL IVPUSH ONE ×2 (13:15→14:26)
[2019-06-15] MEDS ORDERED: Bacitracin Oint 1 GM U/D Packet TOP ONE (13:25)
[2019-06-15 13:35] VITALS: BP 152/88
[2019-06-15] MEDS: Sodium Chloride 0.9% 10 ML Syringe FLUSH PRN ×2 (13:36→14:54)
--- NOTE | 2019-06-15 13:52 | CRLCR ---
INDICATION: Shortness of breath TECHNIQUE: Chest 1 views COMPARISON: May 13, 2019 FINDINGS: Cardiovascular and mediastinum: Stable cardiomegaly. Normal pulmonary vasculature. Lungs and pleural spaces: Lungs are clear. No sign of infiltrate or mass. No sign of pleural effusion. No pneumothorax. Bones and soft tissues: No significant findings. IMPRESSION: No acute findings and no significant changes from the prior exam. Dictated by Tyree Cote MD @ Jun 15 2019 1:49PM Signed by Dr. Tyree Cote @ Jun 15 2019 1:51PM
[2019-06-15] MEDS ORDERED: Potassium Chloride 20 MEQ Tab.ER PO ONE (14:21)
== END 2019-06-15 18:05 | disposition home or self-care (01) ==
LOC: JP.ED 12:05
DX: I13.0 Hypertensive heart and chronic kidney disease with heart failure and stage 1 through stage 4 chronic kidney disease, or unspecified chronic kidney disease (principal); I50.9 Heart failure, unspecified; N18.3 Chronic kidney disease, stage 3 (moderate); E11.22 Type 2 diabetes mellitus with diabetic chronic kidney disease; M19.90 Unspecified osteoarthritis, unspecified site; K21.9 Gastro-esophageal reflux disease without esophagitis; F41.9 Anxiety disorder, unspecified; Z79.01 Long term (current) use of anticoagulants; Z79.899 Other long term (current) drug therapy; Z98.49 Cataract extraction status, unspecified eye; Z98.890 Other specified postprocedural states; Z90.710 Acquired absence of both cervix and uterus; Z91.040 Latex allergy status
CPT/HCPCS: 36415; 71045; 80053; 83880; 84484; 85025; 85610; 93005; 96374; 96376; 99284; A9270; J1940; 93010